=== PATIENT | male | born 1990 | race Caucasian/White ===

== ENCOUNTER 2017-10-21 19:43 | Emergency (ER) | payer OTHER ==
[~2017-10-21] VITALS: Ht 177.8 cm; Wt 95.3 kg
[~2017-10-21 19:43] MED LIST: PENICILLIN VK250 MG PO; PERCOCET 7.5-31 EACH PO; VENTOLIN HFA 1818 GM
[2017-10-21] MEDS ORDERED: TRAMADOL 50 MG50 MG PO (20:01)
[2017-10-21] MEDS ORDERED: AMOXICILLIN 50500 MG PO (20:01)
[2017-10-21] MEDS ORDERED: PROAIR HFA8.5 GM INH (20:07)
[2017-10-21 20:13] VITALS: BP 150/72
== END 2017-10-21 20:13 | disposition home or self-care (01) ==
LOC: M.ERS 19:43
DX: K08.89 Other specified disorders of teeth and supporting structures (principal); J45.909 Unspecified asthma, uncomplicated